=== PATIENT | male | born 1970 | race Caucasian/White ===

== ENCOUNTER 2016-10-31 22:02 | Emergency (ER) | payer BC ==
[~2016-10-31] VITALS: Ht 175.3 cm; Wt 84.8 kg
[2016-10-31 23:58] LABS: BASOPHIL % 0.5 % (0-2); PLATELET COUNT 206 x10^3mcL (130-400)
[2016-10-31 23:59] LABS: RED CELL DISTRIBUTION WIDTH 14.9 % (11.5-14.5)
[2016-11-01 00:03] LABS: CALCIUM 8.7 mg/dL (8.5-10.1); CHLORIDE SERUM 104 mmol/L (98-107); CREATININE SERUM 1.2 mg/dL (0.7-1.3); GFR1 > 60 mL/min; GLUCOSE SERUM 92 mg/dL (74-106); POTASSIUM SERUM 4.4 mmol/L (3.5-5.1); SODIUM SERUM 138 mmol/L (136-145)
[2016-11-01 00:07] LABS: ALBUMIN 3.8 g/dL (3.4-5.0); ALKALINE PHOSPHATASE 74 U/L (46-116); ALT/SGPT 23 U/L (16-63); AMYLASE 61 U/L (25-115); AST/SGOT 18 U/L (15-37); BILIRUBIN TOTAL 0.3 mg/dL (0.20-1.00); LIPASE 131 IU/L (73-393); TOTAL PROTEIN, SERUM 7.2 g/dL (6.4-8.2)
[2016-11-01 01:41] VITALS: BP 130/76
== END 2016-11-01 01:41 | disposition home or self-care (01) ==
LOC: ED 22:02
PROVIDERS: Emergency Medicine
DX: R10.32 Left lower quadrant pain (principal); Z79.899 Other long term (current) drug therapy
CPT/HCPCS: 36415; 83880; 87491; 87591; J1885

== ENCOUNTER 2019-08-11 00:45 | Observation (INO) | payer BC ==
[~2019-08-11] VITALS: Ht 175.3 cm; Wt 88.0 kg
[2019-08-11 01:00] VITALS: Ht 175.3 cm; Wt 88.0 kg
[2019-08-11 02:08] LABS: BASOPHIL % 0.4 % (0-2); PLATELET COUNT 226 x10^3mcL (130-400); RED CELL DISTRIBUTION WIDTH 12.8 % (11.5-14.5)
[2019-08-11 02:25] LABS: CALCIUM 9.1 mg/dL (8.5-10.1); CARBON DIOXIDE 26.7 mmol/L (21-32); CHLORIDE SERUM 106 mmol/L (98-107); GFR1 > 60 mL/min; GLUCOSE SERUM 107 mg/dL (74-106); POTASSIUM SERUM 3.7 mmol/L (3.5-5.1); SODIUM SERUM 140 mmol/L (136-145)
[2019-08-11 02:28] LABS: ALBUMIN 3.8 g/dL (3.4-5.0); ALKALINE PHOSPHATASE 80 U/L (46-116); ALT/SGPT 63 U/L (16-63); AST/SGOT 28 U/L (15-37); BILIRUBIN TOTAL 0.22 mg/dL (0.20-1.00); TOTAL PROTEIN, SERUM 7.3 g/dL (6.4-8.2)
[2019-08-11 04:58] VITALS: BP 129/71
[2019-08-11 06:37] LABS: BASOPHIL % 0.6 % (0-2); PLATELET COUNT 197 x10^3mcL (130-400); RED CELL DISTRIBUTION WIDTH 13.5 % (11.5-14.5)
[2019-08-11 06:51] LABS: ALBUMIN 3.6 g/dL (3.4-5.0); ALKALINE PHOSPHATASE 73 U/L (46-116); ALT/SGPT 64 U/L (16-63); AST/SGOT 37 U/L (15-37); BILIRUBIN TOTAL 0.28 mg/dL (0.20-1.00); CARBON DIOXIDE 27.7 mmol/L (21-32); CHLORIDE SERUM 106 mmol/L (98-107); GFR1 > 60 mL/min; GLUCOSE SERUM 91 mg/dL (74-106); MAGNESIUM 2.1 mg/dL (1.8-2.4); SODIUM SERUM 142 mmol/L (136-145); TOTAL PROTEIN, SERUM 7.1 g/dL (6.4-8.2)
[2019-08-11 07:43] VITALS: BP 118/67
[2019-08-11 11:30] VITALS: BP 132/78
[2019-08-11] MEDS ORDERED: ASPIR 8181 MG PO (12:02)
[2019-08-11 12:03] VITALS: BP 121/70
[2019-08-11] MEDS ORDERED: NAPROXEN375 MG PO (12:03)
== END 2019-08-11 13:20 | disposition home or self-care (01) ==
LOC: ED 00:45 → DU 02:52
PROVIDERS: ADMIT Internal Medicine Pulmonary Disease
DX: R07.89 Other chest pain (principal); M50.30 Other cervical disc degeneration, unspecified cervical region; R20.2 Paresthesia of skin
CPT/HCPCS: G0378; Q0092